=== PATIENT | female | born 1955 | race Caucasian/White ===

== ENCOUNTER 2022-05-26 08:49 | Outpatient (CLI) | payer MEDICARE, SELFPAY ==
[2022-05-26 14:50] LABS: Chloride* 105 mmol/L (96-114); Potassium* 4.7 mmol/L (3.6-5.1); Sodium* 137 mmol/L (135-149)
[2022-05-26 14:52] LABS: Cholesterol* 260 mg/dL (90-199)
[2022-05-26 14:53] LABS: Blood Urea Nitrogen* 16 mg/dL (7-30); Calcium* 9.7 mg/dL (8.4-10.6); Carbon Dioxide* 28 mmol/L (20-32); Creatinine* 0.7 mg/dL (0.5-1.5); Estimated Glomerular Filt Rate 96 ml/min; Glucose* 85 mg/dL (60-115); Triglycerides* 79 mg/dL (40-149)
[2022-05-26 14:54] LABS: HDL Cholesterol* 85 mg/dL (>=50); LDL Cholesterol Calculated 159 mg/dL (<100)
== END 2022-05-26 08:50 | disposition home or self-care (01) ==
PROVIDERS: PCP Family Medicine; Visit Provider Emergency Medicine
DX: E78.5 Hyperlipidemia, unspecified (principal); Z13.1 Encounter for screening for diabetes mellitus
CPT/HCPCS: 80048; 80061

== ENCOUNTER 2022-08-11 15:11 | Outpatient (CLI) | payer MEDICARE, SELFPAY ==
--- NOTE | 2022-08-11 15:30 | CRLHL7_ITS ---
For Patients: As a result of the Century Cures Act, medical imaging exams and procedure reports are released immediately into your electronic medical record. You may view this report before your referring provider. If you have questions, please contact your health care provider. DXA BONE MINERAL DENSITY STUDY Current height (in): 63.5. Weight (lb): 166.0. Menopause age: 58. Ethnicity: White. 1. Have you had a previous hip or vertebral fracture? No. 2. Have you had any fractures during your adult life which did not result from significant trauma (e.g., auto accident)? No. 3. Did either of your parents have a hip fracture? No. 4. Do you smoke? No. 5. Have you ever taken Glucocorticoids? No. 6. Do you have rheumatoid arthritis? No. 7. Do you have secondary osteoporosis? No. 8. Do you drink 3 or more alcoholic drinks per day? No. 9. Are you being treated for osteoporosis? Yes. 10. Have you ever taken any of the following medications: Actonel, Evista, Fosamax, Miacalcin, Reclast, Boniva, Forteo, HRT (i.e. estrogen/hormone therapy), Protelos, Prolia, Vitamin D, Calcium, other ??? please specify. ANSWER: No. 11. Do you have any of the following medical conditions: Anorexia or bulimia, asthma or emphysema, end stage renal disease, hyperparathyroidism, any seizure disorders, cancer, inflammatory bowel diseases, hysterectomy, other ??? please specify. ANSWER: No. 12. What was your maximum height (inches)? 64. 13. Do you perform weight bearing exercise regularly? Yes. 14. Do you regularly consume dairy products? Yes. 15. Do you drink caffeinated beverages? Yes. 16. At what age did your period start? 15. 17. Are you premenopausal? No. 18. How many full term pregnancies have you had? 3. 19. Have you ever missed your period for more than 6 months in a row (not including or menopause)? No. TECHNIQUE: Bone mineral density study was performed using the [employer]. FINDINGS: The results of the study expressed as bone mineral density (BMD) are as follows: Lumbar spine L1 to L3: BMD: 0.960 g/cm2. T-score: -0.5. Z-score: 1.2. Neck Left: BMD: 0.808 g/cm2. T-score: -0.4. Z-score: 1.2. Right: BMD: 0.870 g/cm2. T-score: 0.2. Z-score: 1.7. Total Left: BMD: 0.992 g/cm2. T-score: 0.4. Z-score: 1.7. Right: BMD: 1.003 g/cm2. T-score: 0.5. Z-score: 1.8. IMPRESSION: Normal bone density. *Comparison exams done prior to 11/2019 were performed on different unit, [employer]. COMPARISON: Compared with scan of 03/25/2019, the bone mineral density has decreased by 6.9 percent at the spine and increased by 4.2 percent at the hip. MARCIO CHRISTIAN MD Diagnostic/Nuclear Medicine Radiologist [email or web address] JASON/[email or web address] be/Dictated by: Marcio Christian MD @ 08/11/2022 9:45:00 PM (Electronically Signed)
== END 2022-08-11 15:12 | disposition home or self-care (01) ==
PROVIDERS: PCP Family Medicine; Visit Provider Emergency Medicine
DX: Z13.820 Encounter for screening for osteoporosis (principal); Z78.0 Asymptomatic menopausal state
CPT/HCPCS: 77080

== ENCOUNTER 2022-12-28 08:11 | Day surgery (SDC) | payer MEDICARE, SELFPAY ==
[2022-12-28] VITALS (7 sets, daily range): BP systolic 86–122; BP diastolic 56–85; PULSE 53–84; RESP 14–16; TEMP 36.7–36.8; O2SAT 93–97; BMI 29.2
[2022-12-28] MEDS: LACTATED RINGERS 1000 ML 1,000 ML 100 ML IV ×2 (09:15→10:40)
[2022-12-28] MEDS: SODIUM CHLORIDE 0.9 % (FLUSH) 10 ML SYRINGE IVF (09:15)
[2022-12-28] MEDS: MIDAZOLAM HCL 1 MG/ML inj IVP (09:45)
[2022-12-28] MEDS: fentaNYL 100 MCG/2 ML inj IVP (09:45)
--- NOTE | 2022-12-28 09:48 | SUR.PREOP ---
TIME?OUT:?0943 PT/RN/MDA?VERIFICATION?OF?SURGICAL?SITE,?PROCEDURE,?AND?CONSENT OBTAINED?PRIOR?TO?INVASIVE?PROCEDURE. All in agreement.
[2022-12-28] MEDS: CEFAZOLIN 2 GM in 0.9 % SODIUM CHLORIDE Mini-bag 100 ML IVPB (10:25)
--- NOTE | 2022-12-28 10:37 | W.PM.NB ---
Nerve Block Nerve Block Time Seen by Provider: 09:48 Date Seen: 12/28/22 Type of block requested by surgeon for post-operative analgesia: axillary Side: left Time out performed: Yes Verification of patient name: Yes Verification of date of : Yes Site marking: site marked Name of person performing procedure: Jamar Continuous monitoring Was continuous monitoring of O2 sat, B/P, quality assurance monitor chassis, recorded every 15 minutes?: Yes Procedure Checklist: sterile prep, needles and gloves Ultrasound guided. Images saved: Yes Medications given in 5ml increments after negative aspiration: Ropivicaine %: 0.5 mL: 30 Needle gauge: 22 Patient tolerated procedure well: Yes Additional comments: Needle noted adjacent to nerve Block Charges Block Charge (with Pro Fee): Brachial Plexus Use of Ultrasound Machine for Block: Yes- US Guidance/pain block
--- NOTE | 2022-12-28 10:38 | W.ANESCHARGE ---
Anesthesia Charges Start Date/Time Anesthesia Start Date: 12/28/22 Anesthesia Start Time: 10:06 Stop Date/Time Anesthesia Stop Date: 12/28/22 Anesthesia Stop Time: 12:05
--- NOTE | 2022-12-28 11:26 | P.ORPRC_ITS ---
Procedure Note Date of procedure: 12/28/22 Procedure: PREOPERATIVE DIAGNOSIS: 1. Left thumb CMC osteoarthritis, primary, severe 2. Left ring finger dorsal mucous cyst with associated D IP joint osteophytosis POSTOPERATIVE DIAGNOSIS: 1. Left thumb CMC osteoarthritis, primary, severe 2. Left ring finger dorsal mucous cyst with associated DIP joint osteophytosis PROCEDURE: 1. Left thumb CMC arthroplasty with transfer of FCR tendon carpometacarpal area without free graft / tendon interposition (LRTI) 2. Left ring finger open mucous cyst excision 3. Left dorsal ring finger DIP joint osteophyte open excision SURGEON: Yash Husain M.D. MASSAGE OPERATOR: Roderick CARRERA. Of note, an assistant professor of business was critical for this case to aid in patient positioning, arm manipulation, instrument exchange, and closure. ANESTHESIA: Regional block EBL: 5 mL TOURNIQUET: 60 minutes at 225 torr torr-arm tourniquet IMPLANTS: Arthrex 4.75 mm BioComposite interference screw COMPLICATIONS: None evident INDICATIONS: The patient is a pleasant 67-year-old female. They have experienced significant pain about the thumb CMC joint on the left upper extremity. Nonoperative management including cortisone injection, activity modification, bracing, rest, oral NSAIDs, etc has not provided long-term relief. Given the failure of nonoperative management, surgery was recommended. FINDINGS: Severe osteoarthritis of the 1st CMC joint seen by osteophyte formation, chondral loss, and joint space narrowing, consistent with CMC osteoarthritis DESCRIPTION OF PROCEDURE: After a thorough discussion of risks, benefits, and alternatives, the patient was brought to the operating room and placed upon the operating table. Induction of anesthesia was undertaken as previously noted. 1 g IV Ancef was administered within 1 hr incision preoperatively. Appropriate time-out was performed identifying proper patient, site, and procedure. The left upper extremity was prepped and draped in the appropriate sterile fashion using ChloraPrep. The limb was exsanguinated and tourniquet inflated. A curvilinear incision was made along the ulnar border of the 1st metacarpal with the curved portion extending volar just proximal to the CMC joint. Sharp incision through skin and blunt dissection to subcutaneous tissue allowed identification and protection of the crossing neurovascular structures including the SBRN. The dorsal capsule off the metacarpal base was sharply divided and subperiosteally elevated. The crossing branch of radial artery was visualized in the proximal extent of the wound, its small branches to the capsule were coagulated, but the rest the artery was protected. The trapezium was freed from the surrounding capsular tissues circumferentially with a combination of 15 blade and a [place] blade. After freeing the trapezium from the superficial tissues, the bone was quartered with a microsagittal saw a majority of the way through the bone. Caution was taken not to penetrate completely so as not to injure the FCR tendon in the deep portion of the wound. The osteotomy was completed with an osteotome. The quartered fragments were then removed with a combination of a rongeur, and sharp dissection cautiously with the [place] blade. We then turned our attention to the FCR tendon harvest for transfer. The tendon was easily palpable approximately 10 cm proximal from the wrist crease. A transverse incision was made overlying this musculotendinous junction. Blunt dissection through subcutaneous tissue allowed identification of the FCR tendon and sheath. The FCR was probed in the deep portion of the trapezium wound, and after talking on this, confirmed the more proximal location of the FCR. The FCR sheath was entered, the tendon sharply divided from the deeper muscle, and a Metzenbaum scissors was utilized to release any adhesions within the sheath distally toward the wrist. We also released any adhesions within the FCR tunnel through the carpus with a [place] elevator. Then a combination of a probe and a hemostat allowed us to bluntly free and exposed the FCR tendon out the trapezial void. 2-0 FiberWire was utilized to capture the deep capsule for eventual anchovy securing of the transferred FCR tendon and a 2nd 2-0 FiberWire was passed near the FCR tendon insertion for eventual reapproximation of the looped tendon onto itself. In order to pass it through the metacarpal base, a guide pin was passed approximately 15 mm distal from the metacarpal base in plane with the thumbnail directed towards the metacarpal base coming out through the articular surface / beak junction. After confirming proper location, this was over reamed with a 5 mm Reamer. A tendon Passer was then utilized to help transfer the freed FCR tendon through this tunnel. Once the thumb was held in proper position of slight traction and slight extension with neutral rotation and abduction, the tendon was looped back on itself and tied with the previously passed 2-0 FiberWire secured to the deeper FCR near the 2nd metacarpal base distal insertion site. Then, 3-0 Vicryl was utilized to help stabilize the tendon with the capsule to counteract the natural wrapping that the screw otherwise creates. Next, the interference screw was placed while controlling the thumb from distal toward the proximal. We then reapproximated the dorsal capsule through the now passed tendon with 3-0 Vicryl. This occurred while positioning the thumb metacarpal in slight abduction and extension with proper height maintained based on direct visualization to the 2nd metacarpal base. Finally, 2-0 FiberWire was utilized to capture the deep capsule for eventual anchovy securing of the transferred FCR tendon. We then created an anchovy with remaining tendon with 2 separate [place] needles that allowed us to pass the tails of the deeper capsular 2-0 FiberWire through this. Excellent securing of the tendon was achieved. We then turned our attention to the left ring finger mucous cyst open excision and osteophyte excision. Sharp incision transversely across the D IP joint dorsally was performed with a small L curve at the ulnar border. This flap the tissue was mobilized. The extensor tendon was maintained throughout this procedure and protected. The dorsal mucous cyst was encountered and excised with a combination of curette and 15 blade scalpel. The fluid was decompressed. The dorsal osteophyte was excised with a combination rongeur and rasp again protecting the extensor tendon. Thorough irrigation normal saline was performed of all wounds. Closure was then performed with 3-0 Vicryl for subcutaneous, and 4-0 Monocryl for subcuticular layers of the thumb, respectively. 4-0 nylon was utilized for closure of the left ring finger skin PLAN: 1. Elevate operative extremity at or above heart level. 2. Ice, acetominophen and/or ibuprofen, and Percocet for pain as needed. 3. Finger/wrist range of motion as tolerated. 4. Keep the splint clean, dry, and intact until follow-up. 5. Follow up with PA visit in 2 weeks removal of splint and application of thumb spica cast. Then follow-up at the 4 week tarah for removal of cast and OT visit for Orthoplast splint fabrication which should be scheduled immediately after the orthopedic clinic visit that day on the 4 week tarah
--- NOTE | 2022-12-28 12:05 | W.ANESCHARGE ---
Anesthesia Charges Start Date/Time Anesthesia Start Date: 12/28/22 Anesthesia Start Time: 10:06 Stop Date/Time Anesthesia Stop Date: 12/28/22 Anesthesia Stop Time: 12:05
== END 2022-12-28 13:25 | disposition home or self-care (01) ==
PROVIDERS: PCP Family Medicine; Visit Provider Orthopaedic Surgery Sports Medicine
PROC: (CPT 25447; principal; 2022-12-28 09:45)
PROC: (CPT 25447; 2022-12-28 09:45)
DX: M18.12 Unilateral primary osteoarthritis of first carpometacarpal joint, left hand (principal); G89.18 Other acute postprocedural pain; M25.742 Osteophyte, left hand; M67.442 Ganglion, left hand
CPT/HCPCS: 25447; 26160; 26210; 01810; 64415; 76942; A4580; C1713; J0690; J1100; J2250; J2405; J2704; J2795; J3010; J7120

== ENCOUNTER 2023-01-04 09:45 | Outpatient (RCR) | payer MEDICARE, SELFPAY ==
--- NOTE | 2022-11-30 13:21 | OT.OPOE ---
OT Outpatient Ortho Eval OT Outpatient Ortho Eval* Start: 11/30/22 07:13 Freq: Status: Active Protocol: Document 11/30/22 13:03 AMB (Rec: 11/30/22 13:21 AMB [id number]) E-signed By Brenda Sheppard, OTR/L, CLT, PAYROLL ADMINISTRATOR OT OP Ortho Eval Details Complexity Complexity Low Insurance Information Insurance Information Medicare B Outpatient History/Precautions Current Condition/Medical Diagnosis Referring Provider Dr Husain Treatment Diagnosis RUE Index DIP arthrodesis Date of Onset 11/02/22 Precautions Range of Motion Other Precautions No ROM of the RUE index DIP. Medical Conditions Metal Implants Other Conditions LLE TKA 2015, BUE CTR, Bunion surgery, meniscus repairx2, hypercholesterolemia. Pt will be undergoing LUE CMC arthroplasty in December. Medical/Functional History Medical History Reviewed Yes Prior Level of Function/Mobility Full, pain-free use of RUE. Social History Employment Status Retired Hobbies Paper [employer] Ortho Subjective Subjective Subjective Pt states that she suddenly developed swelling and discoloration of her RUE index finger tip and was seen in the ER, referred to orthopedics. Discovered that she had a bone spur that was blocking circulation and subsequently underwent debridement and fusion of the DIP of the RUE index finger on 11/02/22. Pt feels she is doing ok, no significant pain unless she bumps it. Pt has been wearing her aluma-foam splint. Pt states the doctor gave her a STAX splint but her finger is too swollen and she cannot get it on. Range of Motion and Strength Hand/Finger/Thumb Range of Motion and Strength Hand/Finger/Thumb Range of Motion and 11/30/22 AROM of the RUE is WNL Strength throughout with the exception of the index finger. DIP is fused, PIP is 25 deg of hyperextension to 65 deg of flex, MP is 0-75. OT Objective Data Skin/Wounds/Edema Comments 11/30/22 Surgical site is well healed, no s/s of infection. Pt does have significant swelling throughout the index finger. Circumferential measurements were taken: distal phalanx=5.3cm on the RUE vs 4.5 on the LUE. DIP joint is 6.2cm on the RUE vs 5 .0 on the LUE. PIP is 6.5cm on the RUE vs 6.0 on the LUE. Proximal phalanx is 6.7cm on the RUE vs 6.0cm on the LUE. OT Problems Problems Problems Decreased Strength,Decreased Range of Motion,Decreased Dexterity,Lifting,Gripping, Pinching Problems Comments Pt is RHD and is having difficulty with all activities that require pinching, gripping, FMC, etc. Other Problems Writing,Opening Containers, Dressing,Computer,Fasteners Patient Potential Good Assessment Assessment Assessment Pt presents to OT with significant swelling and limitations in AROM of the RUE index finger which limits her ability to grasp, pinch, write, open containers, lift, etc. 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 She will also be having LUE thumb CMC arthroplasty in December, hoping to have improved use of LUE by then. Pt will benefit from skilled OT intervention to address impairments and restore full, pain-free use of her LUE. Occupational Therapy Treatment Plan - OP Potential Rehabilitation Potential Good Goals Goals 1. Pt will be independent and compliant with HEP in order to restore full ROM of the RUE index IP and MP joints and general strength of the RUE. 4 weeks 2. Pt will demonstrate full AROM of the RUE index finger PIP and MP joints to improve ability to grasp and hold items as well as to improve hand writing and typing. 6 weeks 3. Pt will demonstrate transportation maintenance specialist strength comparable to average for age and gender in order to improve FMC and ability to pinch and cloth picker small items. 8 weeks. Treatment Plan Treatment Plan Evaluation,Edema Control,Joint Mobilization,Manual Therapy, Splinting,Wound Care/Scar Management,Therapeutic Exercise,Therapeutic Activities,Self Care/Home Management,Education Expected Frequency 1-2x Week Expected Duration 6-8 Weeks Home Program Home Program Home Program Initiated Home Program Specifics 11/30/22 Compression wrap, joint blocking AROM of the RUE PIP and MP, retrograde massage for edema reduction. Certification Certification I Certify That: Therapy Services Provided, Therapy Plan Established, Therapy Plan Reviewed Recertification Information Recertification Information Initial Certification Date 11/30/22 Recertification Due Date 02/28/23 Reasons to Continue Skilled Therapy Initiated OT to address swelling, weakness and impaired ROM of the RUE following index DIP fusion. Rehabilitation Potential Good Continued Plan of Care and Interventions See above Provider Signature Shows Agreement With POC & Medical Necessity Physician Comment/Change Comment or Changes Physician NPI Number #
== END 2023-01-05 08:05 | disposition home or self-care (01) ==
PROVIDERS: PCP Family Medicine; Visit Provider Orthopaedic Surgery Sports Medicine
DX: M18.12 Unilateral primary osteoarthritis of first carpometacarpal joint, left hand (principal); Z51.89 Encounter for other specified aftercare
CPT/HCPCS: 97140; 97165

== ENCOUNTER 2023-03-31 09:15 | Outpatient (RCR) | payer MEDICARE, SELFPAY ==
--- NOTE | 2023-01-31 13:05 | OT.OPOE ---
OT Outpatient Ortho Eval OT Outpatient Ortho Eval* Start: 01/31/23 09:58 Freq: Status: Active Protocol: Document 01/31/23 12:29 AMB (Rec: 01/31/23 13:01 AMB [id number]) E-signed By Brenda Sheppard, OTR/L, CLT, AUTOMATIC I THREADING MACHINE FEEDER OT OP Ortho Eval Details Complexity Complexity Low Insurance Information Insurance Information Medicare B Outpatient History/Precautions Current Condition/Medical Diagnosis Referring Provider Dr Husain Treatment Diagnosis LUE CMC Arthroplasty Date of Onset 12/28/22 Other Precautions Allergy to surgical glue Medical Conditions Metal Implants,Arthritis Other Conditions PMH: (copied from ortho chart ) Medical History (Updated 01/27 @ 12:46 by Ara Lucas) Hypercholesteremia E78.00 - Pure hypercholesterolemia, unspecified (ICD-10) Preventative health care Z00.00 - Encounter for general adult medical examination without abnormal findings (ICD -10) Screening for cervical cancer Z12.4 - Encounter for screening for malignant neoplasm of cervix (ICD-10) Screening for osteoporosis Z13.820 - Encounter for screening for osteoporosis ( ICD-10) Screening for diabetes mellitus Z13.1 - Encounter for screening for diabetes mellitus (ICD-10) Encounter for pre-operative examination Z01.818 - Encounter for other preprocedural examination (ICD -10) Encounter for annual physical exam Z00.00 - Encounter for general adult medical examination without abnormal findings (ICD -10) Surgical History (Updated @ 10:37 by Abdirizak Eldridge) History of hand surgery (12/28) Z98.890 - Other specified postprocedural states (ICD-10) History of arthroplasty of finger of left hand (12/28/22) Z96.692 - Finger-joint replacement of left hand (ICD- 10) H/O arthrodesis (11/02/22) Z98.1 - Arthrodesis status ( ICD-10) History of carpal tunnel surgery of right wrist () Z98.890 - Other specified postprocedural states (ICD-10) S/P left knee arthroscopy (07/04) Z98.890 - Other specified postprocedural states (ICD-10) S/P right knee arthroscopy () Z98.890 - Other specified postprocedural states (ICD-10) History of carpal tunnel surgery of left wrist () Z98.890 - Other specified postprocedural states (ICD-10) Status post total left knee replacement (08/10/15) Z96.652 - Presence of left artificial knee joint (ICD-10) History of colonoscopy Z98.890 - Other specified postprocedural states (ICD-10) History of section ( 10/31/08) Z98.891 - History of uterine scar from previous surgery ( ICD-10) Medical/Functional History Medical History Reviewed Yes Social History Employment Status Retired Hobbies Paper crafting and sewing. Ortho Subjective Subjective Subjective Pt feels she is doing well since her CMC arthroplasty. Pt did have a set back due to an allergy from the surgical glues, sates she had to have her 'cast' on a weel longer, developed blistering and itching, much better now but still has dressing on (just applied by ortho prior to OT visit today). Pt looking forward to removable orthosis and being able to start moving her hand. Pt reports minimal pain, rates pain at 1/10 in her left thumb/wrist. Pt states she had expected the pain to be worse, glad it isn' t. Range of Motion and Strength Elbow/Forearm Range of Motion and Strength Elbow/Forearm Range of Motion and AROM and strength of BUE Strength elbows is WNL throughout Wrist Range of Motion and Strength Wrist Range of Motion and Strength AROM of the RUE wrist is WNL throughout. AROM of the LUE wrist flexion is limited to 45 , ext is 50, UD is 30, RD is 5 . Hand/Finger/Thumb Range of Motion and Strength Hand/Finger/Thumb Range of Motion and AROM of the RUE hand/fingers/ Strength thumb is WNL throughout with the exception of the index finger which was fused at the DIP joint several months ago secondary to arthritis. AROM of the LUE hand fingers / thumb is limited as follows: opposition is to tip of IF, fist is -.5cm from DPC throughout, thumb radial abd is 40, palmar abd is 25, IP is 10deg, MP ext is 5 deg. Hand Pinch/Title Insurance Examiner Strength Comments Comments Too early for strength testing . OT Problems Problems Problems Decreased Strength,Decreased Range of Motion,Pain,Lifting, Gripping,Pinching Other Problems Opening Containers,Computer, Fasteners Patient Potential Good Assessment Assessment Assessment Pt is a very pleasant 67yo female reporting to OT nearly 5 weeks s/p LUE CMC arthroplasty with expected limitations in ROM and strength. Pt is in need of custom splinting for protected healing as well as HEP for AROM, eventually strengthening . Pt is currently limited in all ADLs and IADSLs that require use of her LUE. Pt will benefit from skilled OT intervention for custom splinting and to restore full, pain-free use of LUE in order to return to PLOF / use of LUE. Occupational Therapy Treatment Plan - OP Potential Rehabilitation Potential Good Set Goals Goals Set with Patient Yes Goals Goals 1. Pt will be independent and compliant with HEP in order to resume full, pain-free use of the involved UE. 3 weeks 2. Pt will demonstrate full, pain-free AROM of the involved UE in order to improve ability to grasp and hold. 6 weeks 3. Pt will demonstrate pain- free air cargo specialist and pinch strength comparable to the uninvolved side in order to improve functional grasp, hold, reach, and lifting ability needed to complete self-care, leisure tasks, and work activities. 8 weeks. Target Date 05/03/23 Treatment Plan Treatment Plan Evaluation,Edema Control,Joint Mobilization,Manual Therapy, Splinting,Ultrasound,Wound Care/Scar Management, Therapeutic Exercise, Therapeutic Activities,Self Care/Home Management,Education Expected Frequency 1-2x Week Expected Duration 8-10 Weeks Home Program Home Program Home Program Initiated Home Program Specifics 01/31/23 Initiated HEP with focus on AROM and non resisted mm pumps for the LUE in order to promote full AROM, reduce swelling and decrased pain and stiffness in LUE hand, fingers, thumb, and wrist. Following demo, pt is able to complete exs with minimal cues . Pt was provided with written instructions for use at home as well. Certification Certification I Certify That: Therapy Services Provided, Therapy Plan Established, Therapy Plan Reviewed Recertification Information Recertification Information Initial Certification Date 01/31/23 Recertification Due Date 05/01/23 Reasons to Continue Skilled Therapy Initiated OT to address LUE pain, weakness, and limited AROM following CMC arthroplasty. Rehabilitation Potential Good Continued Plan of Care and Interventions Please see above Provider Signature Shows Agreement With POC & Medical Necessity Physician Comment/Change Comment or Changes Physician NPI Number #
== END 2023-03-31 13:07 | disposition home or self-care (01) ==
PROVIDERS: PCP Family Medicine; Visit Provider Orthopaedic Surgery Sports Medicine
DX: M18.12 Unilateral primary osteoarthritis of first carpometacarpal joint, left hand (principal); Z98.890 Other specified postprocedural states; Z51.89 Encounter for other specified aftercare
CPT/HCPCS: 97035; 97110; 97140; 97165; L3806; X5282

== ENCOUNTER 2023-09-22 08:09 | Outpatient (CLI) | payer MEDICARE, SELFPAY ==
--- OUTSIDE RECORDS SUMMARY | 2023-10-11 11:32 | XMS_ITS | Referral Summary ---
Author Name Unknown Organization [facility] Address [address] [place] [id number] Care Team Providers Care Rock Crushing Machine Operator Name Role Phone Conn Aleja Patino Primary Care Provider [phone] Allergies No known active allergies Medications Medication Sig Dispensed Refills Start Date End Date Status order for DMEIndications:Metat arsalgia, right foot Equipment being ordered: short 8 06/13 boot 1 Device 03/01/2019 Active Hospital, Clinic, or Other Facility Administered Medication Ordered Dose Route Frequency Start Date End Date Status triamcinolone (KENALOG-40) injection 40 mgIndications:Plantar fasciitis 40 mg IM ONCE 03/01/2019 Active Active Problems No known active problems Social History Tobacco Use Types Packs/Day Years Used Date Smoking Tobacco: Never Smokeless Tobacco: Never Tobacco Cessation:Counseling Given: Yes Adolescent Education Answer Date Record ed Getting School Help Needed Not on file 03/26 Sex and Gender Information Value Date Recorded Sex Assigned at Not on file Gender Identity Not on file Sexual Orientation Not on file Last Filed Vital Signs Vital Sign Reading Time Taken Comments Blood Pressure 127/69 09/30/2022 2:17 PM CDT Pulse 69 09/30/2022 2:17 PM CDT Temperature 36.6 ??C (97.8 ??F) 09/30/2022 2:17 PM CD T Respiratory Rate 17 09/30/2022 2:17 PM CDT Oxygen Saturation 97% 09/30/2022 2:17 PM CDT Inhaled Oxygen Concentration - - Weight 77.5 kg (170 lb 13.7 oz) 09/30/2022 2:17 PM CDT Height 160 cm (5' 3) 03/26/2019 6:57 AM CDT Body Mass Index 30.27 03/26/2019 6:57 AM CDT Plan of Treatment Not on file Procedures Procedure Name Priority Date/Time Associated Diagnosis Comments BASIC METABOLIC PANEL STAT 09/30/2022 5:47 PM CDT from Last 3 Months or Most Recently Relevant to Health Maintenance Results * Basic metabolic panel (09/30/2022 5:47 PM CDT) Sodium 137 136 - 145 mmol/L 09/30/2022 6:22 PM CDT LABORATORY Potassium 4.1 3.4 - 5.3 mmol/L 09/30/2022 6:22 PM CDT LABORATORY Chloride 100 98 - 107 mmol/L 09/30/2022 6:22 PM CDT LABORATORY Carbon Dioxide (CO2) 26 22 - 29 mmol/L 09/30/2022 6:22 PM CDT LABORATORY Anion Gap 11 7 - 15 mmol/L 09/30/2022 6:22 PM CDT LABORATORY Urea Nitrogen 15.4 8.0 - 23.0 mg/dL 09/30/2022 6:22 PM CDT LABORATORY Creatinine 0.69 0.51 - 0.95 mg/dL 09/30/2022 6:22 PM CDT LABORATORY Calcium 9.8 8.8 - 10.2 mg/dL 09/30/2022 6:22 PM CDT LABORATORY Glucose 98 70 - 99 mg/dL 09/30/2022 6:22 PM CDT LABORATORY GFR Estimate >90 >60 mL/min/1.7 3m2 09/30/2022 6:22 PM CDT LABORATORY Comment:eGFR calculated usin 2020 CKD-EPI equation. Blood BLOOD SPECIMEN / Unknown Venipuncture / Unknown 09/30/2022 5:47 PM CDT 09/30/2022 5:59 PM CDT Xavi Mariee MD LAB - BLOOD ORD ERABLES LABORATORY [facility] [address] Lab (1st floor, no room number) [place] [address], [facility] [phone] from Last 3 Months or Most Recently Relevant to Health Maintenance Care Teams Rock Crushing Machine Operator Relationship Specialty Start Date End Date Aleja Conn [facility] [address] [place], [place] [id number] PCP - General Nurse Practitioner 04/18/16
--- OUTSIDE RECORDS SUMMARY | 2023-10-11 11:32 | XMS_ITS | Encounter Summary ---
Author Name Unknown Organization [facility] Address [address] [address] Care Team Providers Care School Cleaner Name Role Phone Nathen Rose MD Primary Care Provider [phone] Encounter Details Date Type Department Care Team (Latest Contact Info) Description 07/01/1996 Orders Only Gulshan Foote MD [address] [facility] [place] [address] Social History Tobacco Use Types Packs/Day Years Used Date Smoking Tobacco: Never Assessed Sex and Gender Information Value Date Recorded Sex Assigned at Not on file Gender Identity Not on file Sexual Orientation Not on file documented as of this encounter Plan of Treatment Not on file documented as of this encounter Visit Diagnoses Not on filedocumented in this encounter Care Teams School Cleaner Relationship Specialty Start Date End Date Nathen Rose MD [address] [place] [address] PCP - General Family Practice 09/20/23 documented as of this encounter
--- OUTSIDE RECORDS SUMMARY | 2023-10-11 11:32 | XMS_ITS | Encounter Summary ---
Author Name Unknown Organization [facility] Address [address], [place] [address] Care Team Providers Care Car Rider Name Role Phone Nathen Rose MD Primary Care Provider Encounter Details Date Type Department Care Team (Latest Contact Info) Description 06/06/1997 [place] [address] [place] [address] Social History Tobacco Use Types Packs/Day Years Used Date Smoking Tobacco: Never Assessed Sex and Gender Information Value Date Recorded Sex Assigned at Not on file Gender Identity Not on file Sexual Orientation Not on file documented as of this encounter Plan of Treatment Not on file documented as of this encounter Visit Diagnoses Not on filedocumented in this encounter Care Teams Car Rider Relationship Specialty Start Date End Date Nathen Rose MD [address] [place] [address] PCP - General Family Practice 09/20/23 documented as of this encounter
--- OUTSIDE RECORDS SUMMARY | 2023-10-11 11:32 | XMS_ITS | Encounter Summary ---
Author Name Unknown Organization [facility] Address [address] [address] Care Team Providers Care Newsroom Intern Name Role Phone Evelyn Cruz MD Primary Care Provider [phone] Reason for Visit * Reason Comments Eye Exam Encounter Details Date Type Department Care Team (Late st Contact Info) Description 09/13/2023 10:00 AM CDT Office Visit [facility] [address] [place], [place] [id number] Rachel Castellano, OD [address] [place], [place] [id number] Examination of eyes and vision (Primary Dx); Presbyopia; Regular astigmatism of both eyes; Endothelial corneal dystrophy of both eyes; History of strabismus surgery; Allergic conjunctivitis of both eyes; Age-related nuclear cataract of both eyes Social History Tobacco Use Types Packs/Day Years Used Date Smoking Tobacco: Never Smokeless Tobacco: Never PHQ-2 Answer Date Recorded PHQ-2 Score 0 04/28/2021 Sex and Gender Information Value Date Recorded Sex Assigned at Not on file Gender Identity Not on file Sexual Orientation Not on file documented as of this encounter Patient Instructions * Patient Instructions* Rachel Castellano, OD - 09/13/2023 10:00 AM CDT If you have questions, you can send me a message through [employer] or call [phone]. Call [phone] or [phone] (after hours) with any new or worsening eye symptoms. Overall, your eyes are healthy at this time. An updated glasses prescription was finalized today. Dry Eye Treatments [x] Artificial tears/lubricant drops (Refresh, Systane, Retaine, Blink, Optive, TheraTears) [x] Once daily allergy drop like lastacaft or pataday [x] Warm compresses: 1. Warm a gel pack, Thermalon Mask, Angel Mask, or a clean sock filled with uncooked rice (microwave in 30 second increments and mix). Gel packs are available at the [facility] or a pharmacy; Angel Masks are available at the [facility]. 2. Place over your eyes for 10-15 minutes. 3. Follow up with a gentle eyelid massage. [x] Eyelid cleansing lid scrubs (We Love Eyes, TheraTears SteriLid, OcuSoft Plus, OcuSoft HypoChlor) Dry Eye Your natural tears protect your eyes and help you see clearly. When you blink, the tear film spreads over your eye, making the surface smooth and optically clear. Dry eyes occur when you don???t produce enough normal tears to keep your eyes moist and comfortable. This condition may be part of the normal aging process, since tear production may decrease as you age. It can also be associated with arthritis or Sjogren???s syndrome, or may be caused by certain medications. Common symptoms of dry eyes include stinging, burning, scratchiness, stringy mucus, excess irritation from smoke, difficulty wearing contact lenses. Surprisingly, increased tearing may also be a symptom of dry eyes. When your eyes are dry, they can become irritated. The lacrimal gland then producesexcess tears in response to the irritation. However, because these tears do not have the right balance of layers found in normal tear film, they run off the eyes without properly lubricating them. Artificial tears (lubricant eye drops) are an effective treatment for symptoms from dry and irritated eyes that burn, feel gritty, itch, or water. It is important to use your artificial tears frequently, before symptoms occur, especially before extended times of reading, computer work, driving, or f ollowing outdoor activities. The most common cause of continued symptoms from dry and irritated eyes is failure to use these lubricants enough to bring about and maintain adequate relief. Because these drops cannot be used too often, it is safe to increase their frequency as your symptoms change. The usual dose is 3-5 times a day. Good brands to look for include Refresh, Systane, Retaine, Blink, BioTrue and TheraTears. If you are sensitive to chemicals or preservatives, look for the preservative-free versions of these brands. Avoid eye drops that get the red out as these can make your eyes more dry and irritated with long-term use. These artificial tears can be purchased [id number] at our pharmacy and most [employer] stores. Use them frequently until your symptoms are controlled, or as directed by your doctor. For long-termtherapy, experiment by slowly reducing the number of installations each day to determine the minimum treatment needed to keep you symptom-free. Other treatment options for more significant dry eye include lubricating eye ointments (like Systane Night Time, Soothe Night Time, Refresh PM, or Genteal Gel) before sleeping, warm compresses, prescription eyedrops, eyelid cleansing products, tear duct plugs, oral omega-3 (fish oil) supplements, and environmental modifications. If you do not find relief from your dry eye symptoms with frequent use of artificial tears, you can schedule a visit to discuss which of these other treatment options would be right for you. Cataracts - mild, both eyes A cataract is a cloudy area in the lens of the eye. Usually, the lens is clear; as it becomes cloudy, your vision may become blurry. Cataracts usually develop gradually without pain, redness, or tearing. Cataracts should be removed with surgery when your vision interferes with your daily activities. Corneal Guttata - very early In the initial stages there are often no symptoms with corneal guttata. With time however they cause a loss of transparency in the cornea which can result in glare and scatter. If the corneal guttatabecome progressively worse and damage the endothelial cells underneath, then this can cause blurring of the vision and haloes around lights. This is typically worse in the mornings to begin with, please call us if you notice increased blurred vision or changes in vision. Early treatment includes saline solution eye drops to decrease swelling of the front surface of the eye. If this conditions progresses surgery may be necessary, this is rare. Refractive Errors Refractive errors occur when light does not focus properly on the retina because of the shape of the eye. The resulting image is blurred. Common refractive errors are myopia (nearsightedness), hyperopia (farsightedness), astigmatism (distorted vision), and presbyopia (aging eyes). Myopia A myopic eye is longer than a normal eye or has a cornea that is too steep, causing light rays to focus in front of the retina instead of on it. With myopia, close objects appear clear, but distant ones appear blurred. Hyperopia Hyperopia occurs when light rays focus behind the retina (because the eye is either too short or has too little focusing power) and causes both far and close objects to appear blurry. The symptoms offarsightedness are more severe with closer objects. Mild amounts of farsightedness are normal and glasses are not typically not required. Children can compensate for this on their own using their natural focusing mechanism (accommodation). Larger amounts of farsightedness are corrected with glasses. Astigmatism The cornea of an astigmatic eye is curved unevenly. Images focus in front of and beyond the retina,causing both close and distant objects to appear blurry. Presbyopia Presbyopia refers to the hardening of the lens that occurs with age. After the age of 40, the lens becomes more rigid and cannot change shape as easily to accommodate near objects. This makes readingand other tasks performed at close range difficult. Presbyopia can occur in combination with any ofthe other three refractive errors. Refractive errors are usually corrected with eyeglasses or contact lenses. If interested, there aresome surgical options such as LASIK or PRK to correct vision, please discuss with your doctor to find out if you would be a good candidate for these surgeries. documented in this encounter Progress Notes * Rachel Castellano, OD - 09/13/2023 10:00 AM CDT I reviewed the patient's past medical history, medications, family history, and social history. General: Generally healthy appearing. Alert and oriented x 3. Subjective: See tech note for today, agree. Assessment: ICD-10-CM 1. Examination of eyes and vision Z01.00 2. Presbyopia H52.4 Refractive State, Determination Of - Bilateral 3. Regular astigmatism of both eyes H52.223 4. 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 History of strabismus surgery Z98.890 6. Allergic conjunctivitis of both eyes H10.13 7. Age-related nuclear cataract of both eyes H25.13 Plan: Plan: 1-3. Updated glasses prescription provided to patient. 4. Discussed with patient, no treatment indicated at this time, monitor. 5. Longstanding, asymptomatic of double vision. monitor. 6. Start pataday or lastacaft, PFAT prn. Warm comrpesses discussed. AVS printed and provided to patient. 7. Not visually significant, monitor. Return to clinic in one year or sooner as needed. documented in this encounter Plan of Treatment Not on file documented as of this encounter Visit Diagnoses Diagnosis Examination of eyes and vision- Primary Presbyopia Regular astigmatism of both eyes Regular astigmatism Endothelial corneal dystrophy of both eyes History of strabismus surgery Allergic conjunctivitis of both eyes Other chronic allergic conjunctivitis Age-related nuclear cataract of both eyes Senile nuclear sclerosis documented in this encounter Care Teams Newsroom Intern Relationship Specialty Start Date End Date Evelyn Cruz MD [address] [place] [address] PCP - General 06/01/1997 09/19/23 documented as of this encounter
--- OUTSIDE RECORDS SUMMARY | 2023-10-11 11:32 | XMS_ITS | Encounter Summary ---
Author Name Unknown Organization [facility] Address [address], [place] [address] Care Team Providers Care Software Engineering Manager Name Role Phone Nathen Rose MD Primary Care Provider [phone] Reason for Referral * Procedure/Equipment (Routine) - Incomplete Specialty Diagnoses / Procedures Referred By Osmel kaiser Referred To Contact Procedures MM Mammogram Screening Bilat W 3D Rios W Nathen Washington MD [address] [place] [address] Referral ID Status Reason Start Date Expiration Date V isits Requested Visits Authorized [id number] Incomplete 09/20/2023 12/19/2024 1 1 Reason for Visit * Procedure/Equipment (Routine) - Incomplete Specialty Diagnoses / Procedures Referred By Osmel kaiser Referred To Contact Procedures MM Mammogram Screening Bilat W 3D Rios W Nathen Washington MD [address] [place] [address] Referral ID Status Reason Start Date Expiration Date V isits Requested Visits Authorized [id number] Incomplete 09/20/2023 12/19/2024 1 1 Encounter Details Date Type Department Care Team ([facility] st Contact Info) Description 09/20/2023 7:40 AM CDT Ancillary Procedure [facility] [address] [place] [address] Social History Tobacco Use Types Packs/Day Years Used Date Smoking Tobacco: Never Smokeless Tobacco: Never PHQ-2 Answer Date Recorded PHQ-2 Score 0 04/28/2021 Sex and Gender Information Value Date Recorded Sex Assigned at Not on file Gender Identity Not on file Sexual Orientation Not on file documented as of this encounter Plan of Treatment Not on file documented as of this encounter Procedures Procedure Name Priority Date/Time Associated Diagnosis Comments MM MAMMOGRAM SCREENING BILAT W 3D RIOS W CAD Routine 09/20/2023 7:41 AM CDT documented in this encounter Results * MM Mammogram Screening Bilat W 3D Rios W CAD (09/20/2023 7:41 AM CDT) Anatomical Region Laterality Modality Breast Bilateral Mammography Impressions 09/20/2023 7:59 AM CDT : ACR BI-RADS Category 1: Negative RECOMMENDATION: Follow Up Imaging in 12 months - Bilateral The results and recommendations of this examination will be communicated to the patient. Narrative 09/20/2023 7:59 AM CDT MM MAMMOGRAM SCREENING BILAT W 3D RIOS W CAD performed on 09/20/23 Compared to: 04/01/2022 MM Mammogram Screening Bilat W 3D Rios W CAD, 03/30/2021 MM Mammogram Screening Bilat W CAD, and 03/24/2020 MM Mammogram Screening Bilat W CAD ?? FINDINGS: Bilateral screening mammogram was performed with the assistance of Computer-Aided Detection and breast tomosynthesis. The breasts are heterogeneously dense, which may obscure small masses. There is no radiographic evidence of malignancy. ?? Nathen Rose MD [facility] documented in this encounter Visit Diagnoses Not on filedocumented in this encounter Care Teams Software Engineering Manager Relationship Specialty Start Date End Date Nathen Rose MD [address] [place] [address] PCP - General Family Practice 09/20/23 documented as of this encounter
--- OUTSIDE RECORDS SUMMARY | 2023-10-11 11:32 | XMS_ITS | Clinical Summary ---
Author Name Unknown Organization [facility] Address [address], [place] [address] Care Team Providers Care Steam Roller Operator Name Role Phone Nathen Rose MD Primary Care Provider [phone] Source Comments You are receiving this document as you are listed as the primary care provider,follow-up provider, or the patient has been referred to you for consultation.This is in compliance with the Medicare and[facility] EHR Incentive Program,which states Providers who transition their patient to another setting of careor provider of care or refers their patient to another provider of care shouldprovide summary care record for each transition of care or referral. [facility] Allergies No known active allergies Medications Medication Sig Dispensed Refills Start Date End Date Status PANTOPRAZOLE SODIUM OR Take 40 mg by mouth daily. 01/30/2020 Active naproxen sodium (ANAPROX) 220 MG tablet Take 220 mg by mouth as needed. Active Active Problems Problem Noted Date Diagnosed Date Acquired hallux valgus, left 01/01/2021 Overview: Added automatically from request for surgery [id number] Diffuse cystic mastopathy 11/16/2002 Overview: Fibrocystic Breast Encounters Date Type Department Care Team Description 09/20/2023 7:40 AM CDT Ancillary Procedure [facility] [address] [place] [address] 09/13/2023 10:00 AM CDT Office Visit [facility] [address] [place] [address] Rachel Castellano, OD Examination of eyes and vision (Primary Dx); Presbyopia; Regular astigmatism of both eyes; Endothelial corneal dystrophy of both eyes; History of strabismus surgery; Allergic conjunctivitis of both eyes; Age-related nuclear cataract of both eyes from Last 3 Months Immunizations Name Administration Dates Next Due Flu Vac Preserv Free (3+yrs) 04/25/2007 HepB Adult (Engerix-B, 20+ y rs, 3 dose series) 08/08/1996,08/08/1996,03/13/1996,1995,01/18/1996,01/18/1996 Influenza IIV4 (Quadrivalent ) 0.5mL (35937) 04/28/2021,03/19/2014 Influenza Vaccine (3+years) ([facility]) 04/10/2008 Influenza, Unspecified Formulation 04/10/2003, Td 11/19/2003, 3,05/26/1993,1983 Family History Medical History Relation Name Comments Cataract Father Glaucoma Father Macular Degeneration Father injecti ons Cataract Mother Glaucoma Mother Macular Degeneration Mother injecti ons Amblyopia/Strabismus Brother 1 Retinal Detachment Brother 1 Amblyopia/Strabismus Brother 2 Diabetes Brother 2 Amblyopia/Strabismus Brother 3 Amblyopia/Strabismus Brother 4 Cataract Paternal Grandfather Cataract Paternal Grandmother Amblyopia/Strabismus Sister 1 Cataract Sister 1 Amblyopia/Strabismus Sister 2 Cancer, Colon Negative Family History Relation Name Status Comments Father Mother Brother 1 Brother 2 Brother 3 Brother 4 Paternal Grandfather Paternal Grandmother Sister 1 Sister 2 Social History Tobacco Use Types Packs/Day Years Used Date Smoking Tobacco: Never Smokeless Tobacco: Never PHQ-2 Answer Date Recorded PHQ-2 Score 0 04/28/2021 Sex and Gender Information Value Date Recorded Sex Assigned at Not on file Gender Identity Not on file Sexual Orientation Not on file Last Filed Vital Signs Vital Sign Reading Time Taken Comments Blood Pressure 109/57 2021 12:45 PM CDT Pulse 56 2021 12:45 PM CDT Temperature 36.4 ??C (97.5 ??F) 2021 12:23 PM C DT Respiratory Rate 14 2021 12:45 PM CDT Oxygen Saturation 98% 2021 12:45 PM CDT Inhaled Oxygen Concentration - - Weight 77.1 kg (170 lb) 02/03/2021 1:15 PM CDT Height 161.3 cm (5' 3.5) 02/03/2021 1:15 PM CDT Body Mass Index 29.64 02/03/2021 1:15 PM CDT Plan of Treatment Health Maintenance Due Date Last Done Comments Hep C Screening (Preventive Services) 1955 Medicare Annual Wellness Visit 1955 Cholesterol 01/04/2011 01/04/2006, 01/11, 01/28/2002, Additional history exists Colonoscopy 04/28/2018 04/28/2008 Dexa 2022 Pneumococcal 65+ Yrs (1 - PCV) 2022 COVID-19 Vaccine ( - season) 2023 04/22/2021, 09/26/2020, 09/05/2020 Influenza (#1) 2023 04/01/2022, 04/12, 04/27/2020, Additional history exists Mammogram 09/19/2024 09/20/2023, 03/13, 03/30/2021, Additional history exists DTaP/Tdap/Td (3 - Tdap) 05/26/2032 05/26/20, 11/09/2010, 11/19/2003, Additional history exists HepB Completed 08/08/1996, 07/14, 03/13/1996, Additional history exists Zoster/Shingles Completed 06/03/2019, 03/12, 12/19/2012 HepA Aged Out No longer eligi ble based on patient's age to complete this topic Hib Aged Out No longer eligi ble based on patient's age to complete this topic IPV (Polio) Aged Out No longer eligi ble based on patient's age to complete this topic MCV4 Aged Out No longer eligi ble based on patient's age to complete this topic Medical Devices Implanted Type Area Commercial Loan Officer Device Identifier Shelf Expiration Date Model / Serial / Lot Scr [employer] 3.0x22 5-Thrd - [id number] Implanted:Qty: 1 on 2021 by Jason Motta DPM at [facility] DEVICE Left: FOOT [employer] 2021 [id number] / / Procedures Procedure Name Priority Date/Time Associated Diagnosis Comments MM MAMMOGRAM SCREENING BILAT W 3D RIOS W CAD Routine 09/20/2023 7:41 AM CDT LIPID PANEL & DIRECT LDL (IF NEEDED) Routine 01/04/2006 8:50 AM CDT from Last 3 Months or Most Recently Relevant to Health Maintenance Results * MM Mammogram Screening Bilat W [...] malignancy. ?? Nathen Rose MD [facility] * (ABNORMAL) Lipid Panel and Direct LDL(If Needed) (01/04/2006 8:50 AM CDT) Cholesterol/HDL Ratio Screen 2.9 No normal range HP CONVERSION Cholesterol 184 <200 mg/dL HP CONVERSION HDL Cholesterol 64(H) 40 - 60 mg/dL HP CONVERSION Triglycerides 44 0 - 149 mg/dL HP CONVERSION LDL Calculated 111 0 - 130 mg/dL HP CONVERSION Comment: 01/04/2006 8:50 AM CDT Roxana Mitchell APRN, EMPLOYEE WELFARE MANAGER LAB_1 HP CONVERSION from Last 3 Months or Most Recently Relevant to Health Maintenance Care Teams Steam Roller Operator Relationship Specialty Start Date End Date Nathen Rose MD [address] [place] [address] PCP - General Family Practice 09/20/23
--- OUTSIDE RECORDS SUMMARY | 2023-10-11 11:32 | XMS_ITS | Encounter Summary ---
Author Name Unknown Organization [facility] Address [address], [place] [address] Care Team Providers Care Record Filing Clerk Name Role Phone Nathen Rose MD Primary Care Provider [phone] Encounter Details Date Type Department Care Team (Latest Contact Info) Description 09/12/1995 Orders Only Philippe Ruiz Social History Tobacco Use Types Packs/Day Years Used Date Smoking Tobacco: Never Assessed Sex and Gender Information Value Date Recorded Sex Assigned at Not on file Gender Identity Not on file Sexual Orientation Not on file documented as of this encounter Plan of Treatment Not on file documented as of this encounter Visit Diagnoses Not on filedocumented in this encounter Care Teams Record Filing Clerk Relationship Specialty Start Date End Date Nathen Rose MD [address] [place] [address] PCP - General Family Practice 09/20/23 documented as of this encounter
--- OUTSIDE RECORDS SUMMARY | 2023-10-11 11:32 | XMS_ITS | Encounter Summary ---
Author Name Unknown Organization [facility] Address [address], [place] [address] Care Team Providers Care Senior Sales Associate Name Role Phone Nathen Rose MD Primary Care Provider [phone] Encounter Details Date Type Department Care Team (Latest Contact Info) Description 05/29/1995 Orders Only Philippe Ruiz Social History Tobacco [...] on filedocumented in this encounter Care Teams Senior Sales Associate Relationship Specialty Start Date End Date Nathen Rose MD [address] [place] [address] PCP - General Family Practice 09/20/23 documented as of this encounter
--- OUTSIDE RECORDS SUMMARY | 2023-10-11 11:32 | XMS_ITS | Encounter Summary ---
Author Name Unknown Organization [facility] Address [address], [place] [address] Care Team Providers Care In Home Nanny Name Role Phone Nathen Rose MD Primary Care Provider [phone] Encounter Details Date Type Department Care Team (Late st Contact Info) Description 06/13/1996 Orders Only [facility] Thad Pedersen [facility] [address], [place] [address] Social History Tobacco Use Types Packs/Day Years Used Date Smoking Tobacco: Never Assessed Sex and Gender Information Value Date Recorded Sex Assigned at Not on file Gender Identity Not on file Sexual Orientation Not on file documented as of this encounter Plan of Treatment Not on file documented as of this encounter Visit Diagnoses Not on filedocumented in this encounter Care Teams In Home Nanny Relationship Specialty Start Date End Date Nathen Rose MD [address] [place] [address] PCP - General Family Practice 09/20/23 documented as of this encounter
--- OUTSIDE RECORDS SUMMARY | 2023-10-11 11:32 | XMS_ITS | Encounter Summary ---
Author Name Unknown Organization [facility] Address [address] [address] Care Team Providers Care Commercial Real Estate Manager Name Role Phone Nathen Rose MD Primary Care Provider [phone] Encounter Details Date Type Department Care Team (Latest Contact Info) Description 06/11/1995 Orders Only Philippe Ruiz Social History Tobacco [...] on filedocumented in this encounter Care Teams Commercial Real Estate Manager Relationship Specialty Start Date End Date Nathen Rose MD [address] [place] [address] PCP - General Family Practice 09/20/23 documented as of this encounter
--- OUTSIDE RECORDS SUMMARY | 2023-10-11 11:32 | XMS_ITS | Encounter Summary ---
Author Name Unknown Organization [facility] Address [address] [address] Care Team Providers Care Ton Cylinder Inspector Name Role Phone Nathen Rose MD Primary Care Provider [phone] Encounter Details Date Type Department Care Team (Latest Contact Info) Description 05/22/1997 Orders Only Evelyn Grider Social History Tobacco Use Types Packs/Day Years Used Date Smoking Tobacco: Never Assessed Sex and Gender Information Value Date Recorded Sex Assigned at Not on file Gender Identity Not on file Sexual Orientation Not on file documented as of this encounter Plan of Treatment Not on file documented as of this encounter Visit Diagnoses Not on filedocumented in this encounter Care Teams Ton Cylinder Inspector Relationship Specialty Start Date End Date Nathen Rose MD [address] [place] [address] PCP - General Family Practice 09/20/23 documented as of this encounter
--- OUTSIDE RECORDS SUMMARY | 2023-10-11 11:32 | XMS_ITS | Encounter Summary ---
Author Name Unknown Organization [facility] Address [address] [address] Care Team Providers Care Relay Dispatcher Name Role Phone Nathen Rose MD Primary Care Provider [phone] Encounter Details Date Type Department Care Team (Latest Contact Info) Description 12/23/1996 Orders Only Evelyn Grider Social History Tobacco [...] on filedocumented in this encounter Care Teams Relay Dispatcher Relationship Specialty Start Date End Date Nathen Rose MD [address] [place] [address] PCP - General Family Practice 09/20/23 documented as of this encounter
--- OUTSIDE RECORDS SUMMARY | 2023-10-11 11:32 | XMS_ITS | Clinical Summary ---
Author Name Unknown Organization [facility] Address [address] [place] [address] Care Team Providers Care Cotton Agent Name Role Phone Conn Aleja Patino Primary Care Provider [phone] Allergies No known active allergies Medications Medication [...] 03/26/2019 6:57 AM CDT Plan of Treatment Health Maintenance Due Date Last Done Comments ADVANCE CARE PLANNING 1957 ANNUAL REVIEW OF HM ORDERS 1957 CT COLONOGRAPHY 1957 DEXA 1957 FIT 1957 FLEX SIG 1957 sDNA (Cologuard) 1957 COLONOSCOPY 1967 COLORECTAL CANCER SCREENING 1967 HEPATITIS C SCREENING 1975 LIPID 1997 RSV VACCINE ( & 60+) (1 - 1-dose 60+ series) 2017 FALL RISK ASSESSMENT 2022 MEDICARE ANNUAL WELLNESS VISIT 2022 01/18/1996, 05/26/1993 COVID-19 Vaccine ( season) 2023 04/06/2022, 04/22/2021, 09/26/2020, Additional history exists PHQ-2 (once per calendar year) 2023 MAMMO SCREENING 04/01/2024 04/01/2022, 01/01/2019 GLUCOSE 09/30/2025 09/30/2022 DTAP/TDAP/TD IMMUNIZATION (3 - Td or Tdap) 05/26/2032 05/26/2022, 11/09/2010, 11/19/2003, Additional history exists ZOSTER IMMUNIZATION Completed 06/03/2019, 03/26/2019, 12/19/2012 Pneumococcal Vaccine: 65+ Years Completed 05/26/2022 INFLUENZA VACCINE Completed 04/01/2023, , 04/28/2021, Additional history exists HPV IMMUNIZATION Aged Out No longer e ligible based on patient's age to complete this topic IPV IMMUNIZATION Aged Out No longer e ligible based on patient's age to complete this topic MENINGITIS IMMUNIZATION Aged Out No l onger eligible based on patient's age to complete this topic RSV MONOCLONAL ANTIBODY Aged Out No l onger eligible based on patient's age to complete this topic Procedures Procedure Name Priority Date/Time Associated Diagnosis Comments BASIC METABOLIC PANEL STAT 09/30/2022 5:47 PM CDT from Last 3 Months or Most Recently Relevant to Health Maintenance Results * Basic metabolic panel (09/30/2022 5:47 PM CDT) Sodium 137 136 - 145 mmol/L 09/30/2022 6:22 PM CDT [facility] Potassium 4.1 3.4 - 5.3 mmol/L 09/30/2022 6:22 PM CDT [facility] Chloride 100 98 - 107 mmol/L 09/30/2022 6:22 PM CDT [facility] Carbon Dioxide (CO2) 26 22 - 29 mmol/L 09/30/2022 6:22 PM CDT [facility] Anion Gap 11 7 - 15 mmol/L 09/30/2022 6:22 PM CDT [facility] Urea Nitrogen 15.4 8.0 - 23.0 mg/dL 09/30/2022 6:22 PM CDT [facility] Creatinine 0.69 0.51 - 0.95 mg/dL 09/30/2022 6:22 PM [facility]T [facility] Calcium 9.8 8.8 - 10.2 mg/dL 09/30/2022 6:22 PM CDT [facility] Glucose 98 70 - 99 mg/dL 09/30/2022 6:22 PM CDT [facility] GFR Estimate >90 >60 mL/min/1.7 3m2 09/30/2022 6:22 PM CDT [facility] Comment:eGFR calculated us2020 CKD-EPI equation. Blood BLOOD SPECIMEN / Unknown Venipuncture / Unknown 09/30/2022 5:47 PM CDT 09/30/2022 5:59 PM CDT Xavi Mariee MD LAB - BLOOD ORD ERABLES [facility] [address] Lab (1st floor, no room number) [place] [address], [facility] [phone] from Last 3 Months or Most Recently Relevant to Health Maintenance Care Teams Cotton Agent Relationship Specialty Start Date End Date Aleja Conn [facility] [address] [place], [place] [id number] PCP - General Nurse Practitioner 04/18/16
== END 2023-09-22 08:10 | disposition home or self-care (01) ==
LOC: NFLDREF 10-11 11:29
PROVIDERS: PCP Family Medicine; Referring Provider Family Medicine; Visit Provider Family Medicine
DX: E78.00 Pure hypercholesterolemia, unspecified (principal); Z13.1 Encounter for screening for diabetes mellitus
CPT/HCPCS: 80053; 80061

== ENCOUNTER 2023-11-20 08:15 | Outpatient (RCR) | payer MEDICARE, SELFPAY ==
--- NOTE | 2023-10-12 13:24 | PT.OPE ---
PT [facility] PT [facility] Outpatient Eval Start: 10/11/23 14:59 Freq: Status: Active Protocol: Document 10/12/23 13:22 CJT (Rec: 10/12/23 13:23 MPT [id number]) E-signed By Juan Byrne PT Physical Therapy Outpatient Evaluation Insurance Information Recert Due Date 01/10/24 Insurance Name Medicare B,Blue Cross/Blue Shield Medical Diagnosis M54.9 - Dorsalgia R20.0 - Anesthesia of skin Treating Diagnosis M54.5 - low back pain M54.16 - lumbar radiculopathy M25.571 - R foot pain Referring Nathen Glasgow MD Subjective Subjective Pt presents with complaints of low back pain and associated right-sided foot numbness. Pt reports she has always had very flat feet. Has worn custom orthotics for about 25 years now. Experiences R foot numbness with standing and walking, also has shooting pain into the R foot. Has been to 3 different podiatrists and has not had any success with their treatment options. Was offered an FERNANDEZ at one point but chose not to pursue that at the time. Has been experiencing more R thigh numbness the past few months. Attends chiro every 2 months or so, also has full-body massages every 6-8 weeks as well. Pt describes her back pain as achy with occasional sharper pains in R low back. Unsure if movements affect her pain much. Pain Comments -10/19 Date of Last Physician Visit 10/11/23 Current Work Status Retired Occupation Former security inspector Preferred Name Maty Precautions Therapy Limitations/Systems Review Not Limited Objective Other/Pertinent Objective Lumbar ROM Extension - no limtations Flexion - can place palms on floor R/L Side Bend - no limitations R/L Rotation - no limitations R Hip ROM Flexion - 120 IR/ER - 44/24 Extension - 0 L Hip ROM Flexion - 120 IR/ER - 36/34 Extension - 0 R knee ROM - 0-0-125 L knee ROM - 0-0-125 R ankle PF/DF(kf)/DF(ke) - 55/ 10/9 L ankle PF/DF(kf)/DF(ke) - 55/ 10/ Upper Abdominals - 2+/5 MMT Lower Abdominals - 2+/5 MMT R Hip Strength Flexion - 3/5 MMT Abduction - 3+/5 MMT Adduction - 4+/5 MMT IR - 5/5 MMT ER - 5/5 MMT Extension - 3+/5 MMT L Hip Strength Flexion - 3/5 MMT Abduction - 4-/5 MMT Adduction - 4+/5 MMT IR - 5/5 MMT ER - 5/5 MMT Extension - 3+/5 MMT R knee Extension - 5/5 MMT R Knee Flexion - 5/5 MMT L knee Extension - 5/5 MMT L knee Flexion - 4/5 MMT Ankle MM - 5/5 MMT for all motions B Palpation: pt reports pain/ tenderness with palpation to B glute min, glute med, piriformis, and R gastroc ( medial>lateral) Gait: no abnormalities detected LLD: 86.0/87.5cm Pelvis: R anterior Assessment Assessment/Impression Maty is a very pleasant 68 year old female who presents to our clinic for evaluation and treatment of low back pain with R-sided radiculopathy. Her primary complaint is R foot numbness with standing and walking. Her numbness on the lateral plantar surface of her R foot. She has tried many different types of shoes and orthotics which have all resulted in minimal and non- lasting relief. Pt presents with significant deficits in her B hips as well as significant muscle tissue tension in her anterior hip in thigh. Her core is also quite weak. While I do feel that she will benefit greatly from strengthening her hips and core, I do not think that this will help her foot numbness. Her foot numbness seems to be due to compression of her lateral plantar nerve, which I feel may be due to her shoes or orthotics. She does understand that her orthotics should not be pushing too much into the lack of arch on her feet. I did ask her to try wearing sandals or flats for a few morse or to wear nothing at all on her feet to see how she responds, as this is not something that she has tried due to fear of increased pain and numbness. She may discontinue and return to her normal shoes if this does happen. While I am not sure what the exact cause is of Maty's foot numbness, it does not seem to be coming from her spine based on today' s testing. I did discuss with her that finding the exact cause of her problem will likely take some time and all questions were answered to the pts satisfaction. Pt also demos a slight leg length difference with R LE shorter than L. She may benefit from use of a small heel lift. Skilled PT services are medically necessary to address deficits and return patient to highest level of function. Recommend physical therapy sessions 2/week for 8 weeks. Pt agrees with this plan. Printout of HEP was given for I completion and pt gives verbal understanding of each exercise. Primary Functional Limitations Walking, standing for extended periods Plan of Care Rehabilitation Potential Good Physical Therapy Goals STG - To be completed in 2-3 weeks: 1. Pt will demo at least 4+/5 MMT for all LE motions bilaterally to provide greater support to pelvis and lumbar spine with standing and walking. 2. Pt will report reduction in severity of numbness in R foot by factor of 2 as indication of reduced strain on lateral plantar nerve. LTG - To be completed in 8 weeks: 1. Pt to be I with HEP so that she may I manage progression of symptoms. 2. Pt will report ability to stand for at least 30 minutes without onset of R foot numbness. 3. Pt will demo at least 4/5 MMT for both upper and lower abdominals to provide adequate core stability to fucntional movements including transfers and walking. Treatment Plan/Direct Interventions Gait Training,Heat,Joint Mobilization,Manual Therapy, Neuromuscular Re-ed,Self-Care/ Home Management,Therapeutic Activities,Therapeutic Exercises,Traction (Mechanical ),Ultrasound Frequency/Duration 2/week for 8 weeks Patient Will Be Discharged From Therapy Completion of LTG(s),Skills Plateau,Independent w/HEP, Independently Progressing Evaluation Billing Untimed Code Treatment Minutes 55 PT Eval No Charge No Complexity Low Certification Information Initial Certification Date 10/12/23 Ending Certification Date 01/10/24 Provider Signature Shows Agreement With POC & Medical Necessity Physician Signature & Date Requested Please Sign/Date Here Physician Comment/Change : Physician NPI Number #
== END 2024-01-25 13:58 | disposition home or self-care (01) ==
PROVIDERS: PCP Family Medicine; Visit Provider Family Medicine
DX: M54.9 Dorsalgia, unspecified (principal); R20.0 Anesthesia of skin; M79.671 Pain in right foot; M25.571 Pain in right ankle and joints of right foot; M54.16 Radiculopathy, lumbar region; Z51.89 Encounter for other specified aftercare
CPT/HCPCS: 97110; 97140; 97161

== ENCOUNTER 2023-12-05 07:04 | Outpatient (CLI) | payer MEDICARE, SELFPAY ==
--- OUTSIDE RECORDS SUMMARY | 2023-12-05 07:07 | XMS_ITS | Encounter Summary ---
Author Organization [facility] Address [address] [place] [address] Care Team Providers Care Interventionist Name Role Phone Nathen Rose MD Primary Care Provider [phone] Encounter Details Date Type Department Care Team (Latest Contact Info) Description 06/06/1997 [place] [address] [place] [address] Social History Tobacco Use Types Packs/Day Years Used Date Smoking Tobacco: Never Assessed Sex and Gender Information Value Date Recorded Sex Assigned at Not on file Gender Identity Not on file Sexual Orientation Not on file documented as of this encounter Plan of Treatment Not on file documented as of this encounter Visit Diagnoses Not on filedocumented in this encounter Care Teams Interventionist Relationship Specialty Start Date End Date Nathen Rose MD [address] [place] [address] PCP - General Family Practice 09/20/23 documented as of this encounter
--- OUTSIDE RECORDS SUMMARY | 2023-12-05 07:07 | XMS_ITS | Encounter Summary ---
Author Organization [facility] Address [address] [address] Care Team Providers Care Musical String Maker Name Role Phone Nathen Rose MD Primary Care Provider [phone] Encounter Details Date Type Department Care Team [...] on filedocumented in this encounter Care Teams Musical String Maker Relationship Specialty Start Date End Date Nathen Rose MD [address] [place] [address] PCP - General Family Practice 09/20/23 documented as of this encounter
--- OUTSIDE RECORDS SUMMARY | 2023-12-05 07:07 | XMS_ITS | Encounter Summary ---
Author Organization [facility] Address [address], [place] [address] Care Team Providers Care Fisher Lobster Name Role Phone Nathen Rose MD Primary Care Provider [phone] Encounter Details Date Type Department Care Team (Late st Contact Info) Description 06/13/1996 Orders Only [facility] Thad Pedersen [facility] [address], [place] [address] Social History Tobacco Use Types Packs/Day Years Used Date Smoking Tobacco: Never Assessed Sex and Gender Information Value Date Recorded Sex Assigned at Not on file Gender Identity Not on file Sexual Orientation Not on file documented as of this encounter Plan of Treatment Not on file documented as of this encounter Visit Diagnoses Not on filedocumented in this encounter Care Teams Fisher Lobster Relationship Specialty Start Date End Date Nathen Rose MD [address] [place] [address] PCP - General Family Practice 09/20/23 documented as of this encounter
--- OUTSIDE RECORDS SUMMARY | 2023-12-05 07:07 | XMS_ITS | Encounter Summary ---
Author Organization [facility] Address [address], [place] [address] Care Team Providers Care Inspector And Clerk Name Role Phone Nathen Rose MD Primary Care Provider [phone] Encounter Details Date Type Department Care Team [...] on filedocumented in this encounter Care Teams Inspector And Clerk Relationship Specialty Start Date End Date Nathen Rose MD [address] [place] [address] PCP - General Family Practice 09/20/23 documented as of this encounter
--- OUTSIDE RECORDS SUMMARY | 2023-12-05 07:07 | XMS_ITS | Encounter Summary ---
Author Organization [email or web address] Address [address] [address] Care Team Providers Care Short Order Fry Cook Name Role Phone Evelyn Cruz MD Primary Care Provider [phone] Reason for Visit * Reason Comments Eye Exam Encounter Details Date Type Department Care Team (Late st Contact Info) Description 09/13/2023 10:00 AM CDT Office Visit [facility] [address] [place], [place] [address] Rachel Castellano, OD [address] [place], [place] [address] Examination of eyes and vision (Primary Dx); [...] you can send me a message through [employer] or call [phone]. Call [phone] or [phone] (after hours) with any new or worsening [...] mix). Gel packs are available at the [facility] or a pharmacy; Angel Masks are available at the [email or web address]. 2. Place over your eyes for 10-15 [...] use. These artificial tears can be purchased [email or web address] at our pharmacy and most [facility] stores. Use them frequently until your symptoms [...] sclerosis documented in this encounter Care Teams Short Order Fry Cook Relationship Specialty Start Date End Date Evelyn Cruz MD [address] [place] [address] PCP - General 06/01/1997 09/19/23 documented as of this encounter
--- OUTSIDE RECORDS SUMMARY | 2023-12-05 07:07 | XMS_ITS | Continuity of Care Document ---
Author Organization [facility] Address [address] [address] [place] [address] Phone Care Team Providers Care Hvac Engineer Name Role Phone Antonia Laguerre CRNA Unavailable Unavailable Allergies, Adverse Reactions, Alerts Substance Reaction Status Criticality adhesive tape ItchingItching Active No Informati on No Known Allergies Resolved No Inform ation Medications Medication Instructions Dosage Effective Dates (start - stop) Status Comments famotidine 40 mg tablet take 1 Tablet by oral route every day at bedtime - Active pantoprazole 40 mg tablet,delayed release take 1 tablet by oral route every morning before breakfast 40 MG - Active pantoprazole 40 mg tablet,delayed release take 1 tablet by oral route every morning before breakfast 40 MG - No Longer Active famotidine 20 mg tablet take 1 tablet by oral route 2 times every day 20 MG - No Longer Active Tylenol Arthritis Pain 650 mg tablet,extended release take 1 Tablet by oral route every day 650 MG - No Longer Active Procedures Procedure Date Ugi Endo; W/bx /mx Level Iv-surg Path Gross/micro 24 Ugi Endo; W/bx /mx Level Iv-surg Path Gross/micro 19 Offic Cons New/estab Mod Advance Directives Directive Yes / No Effective Date File Name No Information Encounters Encounter Description Practice Location Reason(s) For Visit Diagnoses Date Provider Providers Copied on Encounter [facility], [address] [address], [place], [id number], [place] tel:[phone] [facility] No Information 4 Shade EITAN Antonia. [address] [facility] [address], [place], [place], [id number], [place]. tel:[phone] Referring Provider: Dae Chaudhry MD S, [address] [facility] [address], [place], [address] . tel:[phone] [facility], [address] [address], [place], [id number], [place] tel:[phone] [facility] GI Symptoms or Concerns (chief complaint) Ortiz's esophagus without dysplasiaHiata l hernia with GERD and esophagitisBen ign gastric polypEsophagea l obstructionGas tro-esophageal reflux disease with esophagitis, without bleedingBarret t's esophagus without dysplasiaEsoph ageal obstruction 4 Richa Pearl. [address] [facility] [address], [place], [id number], [place]. tel:[phone] Blaine Grubbs MD. tel:[phone] erring Provider: Nathen Rose MD, [address] [place] [address], [address]. tel:[phone] [facility], [address] [address], [place], [address], [place] tel:[phone] [facility] No Information 4 Richa Pearl. [address] [facility] [address], [place], [address], [place]. tel:[phone] [facility], [address] [address], [facility] [place], [address], [place] tel:[phone] [facility] No Information 201 9 Rubén Lopez. [address] [facility] [address], [place], [place], [id number], [place]. tel:[phone] [facility], [address] [address], [place], [id number], [place] tel:[phone] [facility] Dysphagia, unspecifiedOth er diseases of stomach and duodenumDyspha flynn, unspecified Sep- 9 Matthew Cortés. [address] [facility] [address], [place], [place], [address], [place]. tel:[phone] Blaine Grubbs MD. tel:[phone] erring Provider: Referral Self, USE FOR SELF REFERRALS. Offic Cons New/estab Mod [facility], [address] [address], [place], [id number], [place] tel:[phone] [facility] GI Symptoms or Concerns (chief complaint) Dysphagia, unspecified typeBarrett's esophagus without dysplasiaGlobu s sensation Sep- 9 No Information Blaine Grubbs MD. tel:[phone] erring Provider: Blaine Grubbs MD, [address] [place] [address], [address]. tel:[phone] Family History Family Member Type Diagnosis Age At Onset Brother Problem (finding) Alive and well Daughter Problem (finding) Alive and well Mother Problem (finding) Alive and well Brother Problem (finding) alcoholism Sister Problem (finding) Alive and well Father Problem (finding) Colon polyps Father Problem (finding) ulcerative colitis Immunizations Vaccine Date Status Comments influenza, seasonal vaccine, quadrivalent, adjuvanted, 0.5mL dose, preservative free administered Note: [facility] bi-di rectional interface ; Source: Other Registry SARS-COV-2 (COVID-19) vaccin e, mRNA, spike protein, LNP, preservative free, all-sucrose, 30 mcg/0.3 mL dose administered Note: [facility] bi-direct ional interface ; Source: Other Registry Pneumococcal conjugate vacci ne 20-valent (PCV20), polysaccharide [id number] conjugate, adjuvant, preservative free administered Note: [facility] bi-direct ional interface ; Source: Other Registry tetanus toxoid, reduced diphtheria toxoid, and acellular pertussis vaccine, adsorbed administered Note: [facility] b i-directional interface ; Source: Other Registry SARS-COV-2 (COVID-19) vaccin e, mRNA, spike protein, LNP, bivalent, preservative free, 30 mcg/0.3 mL dose, all-sucrose formulation administered Note: [facility] bi-direct ional interface ; Source: Other Registry influenza, high-dose seasona l, quadrivalent, 0.7mL dose, preservative free administered Note: [facility] bi-direct ional interface ; Source: Other Registry SARS-COV-2 (COVID-19) vaccin e, mRNA, spike protein, LNP, preservative free, 30 mcg/0.3mL dose administered Note: [facility] bi-direct ional interface ; Source: Other Registry SARS-COV-2 (COVID-19) vaccin e, mRNA, spike protein, LNP, preservative free, 30 mcg/0.3mL dose administered Note: [facility] bi-direct ional interface ; Source: Other Registry SARS-COV-2 (COVID-19) vaccin e, mRNA, spike protein, LNP, preservative free, 30 mcg/0.3mL dose administered Note: [facility] bi-direct ional interface ; Source: Other Registry Seasonal, quadrivalent, recombinant, injectable influenza vaccine, preservative free administered Note: [facility] bi -directional interface ; Source: Other Registry zoster vaccine recombinant administered N ote: [facility] bi-directional interface ; Source: Other Registry Afluria Qd administered Note: M [facility] bi-directional interface ; Source: Other Registry zoster vaccine recombinant administered N ote: [facility] bi-directional interface ; Source: Other Registry Fluzone Quad 6mo or older administered Note: [facility] bi-direct ional interface ; Source: Other Registry Afluria Qd administered Note: M [facility] bi-directional interface ; Source: Other Registry Fluzone Quad 6mo or older administered Note: [facility] bi-direct ional interface ; Source: Other Registry Afluria Qd administered Note: M [facility] bi-directional interface ; Source: Other Registry Fluzone Quad 6mo or older administered Note: [facility] bi-direct ional interface ; Source: Other Registry Afluria Qd administered Note: M [facility] bi-directional interface ; Source: Other Registry Fluzone Quad 6mo or older administered Note: [facility] bi-direct ional interface ; Source: Other Registry Afluria Qd administered Note: M [facility] bi-directional interface ; Source: Other Registry Fluzone Quad 6mo or older administered Note: [facility] bi-direct ional interface ; Source: Other Registry Influenza, seasonal, injecta ble, preservative free administered Note: [facility] bi-direct ional interface ; Source: Other Registry zoster vaccine, live administered Note: M IIC bi-directional interface ; Source: Other Registry Influenza, seasonal, injecta ble, preservative free administered Note: [facility] bi-direct ional interface ; Source: Other Registry Influenza, seasonal, injecta ble, preservative free administered Note: [facility] bi-direct ional interface ; Source: Other Registry tetanus toxoid, reduced diphtheria toxoid, and acellular pertussis vaccine, adsorbed administered Note: [facility] b i-directional interface ; Source: Other Registry Novel [id number], all formulations administered Note: [facility] bi-direct ional interface ; Source: Other Registry Influenza, seasonal, injecta ble, preservative free administered Note: [facility] bi-direct ional interface ; Source: Other Registry influenza virus vaccine, unspecified formulation administered Note: [facility] bi-di rectional interface ; Source: Other Registry tetanus and diphtheria toxoi ds, adsorbed, preservative free, for adult use (2 Lf of tetanus toxoid and 2 Lf of diphtheria toxoid) administered Note: MII C bi- directional interface ; Source: Other Registry influenza virus vaccine, unspecified formulation administered Note: [facility] bi-di rectional interface ; Source: Other Registry Influenza, seasonal, injectable administe red Note: [facility] bi- directional interface ; Source: Other Registry Engerix-B administered Note: [facility] bi-d irectional interface ; Source: Other Registry Engerix-B administered Note: [facility] bi-d irectional interface ; Source: Other Registry Engerix-B administered Note: [facility] bi-d irectional interface ; Source: Other Registry tetanus and diphtheria toxoi ds, adsorbed, preservative free, for adult use (2 Lf of tetanus toxoid and 2 Lf of diphtheria toxoid) administered Note: MII C bi- directional interface ; Source: Other Registry tetanus and diphtheria toxoi ds, adsorbed, preservative free, for adult use (2 Lf of tetanus toxoid and 2 Lf of diphtheria toxoid) administered Note: MII C bi- directional interface ; Source: Other Registry Payers Payer name Insurance type Covered democrat ID Authoriza tion(s) Blue Cross Medicare Advantage [id number] Social History Type Description Quantity Date Captured Comments Sex Female Smoking Status No Information Chief Complaint And Reason For Visit No Information Reason For Referral Reason For Referral No Information Plan Of Treatment Date Type Action Status Referral Ordered: EGD With Dilation Appointment date/timeframe: 03/11/2019 ordered Referral Ordered: Esoph Motility Study; Appointment date/timeframe: -today ordered History Of Present Illness Encounter Date Complaint History Of Prese nt Illness GI Symptoms or Concerns GI Symptoms or Concerns Maty knight is a 64-year-old female who was referred to clinic for consultation by Dr. Cassie Gant for evaluation of dysphagia. The patient has a past medical history significant for short segment Ortiz's esophagus. The patient states that she would occasionally have some trouble swallowing, which was her manifestation of acid reflux. This summer she developed tinnitus on December 13 and she has been dealing with that constantly since that time. In December, she also had an acute episode of dysphagia when she was eating scrambled eggs while on vacation in [place]. She states that she was unable to tolerate her spit and would have spitting for about 2 hours before she could bring the scrambled eggs back up. Since that time, she has been very scared that the symptoms will return. She denies any heartburn, chest pain, dysphagia, or odynophagia. Her appetite has been good and her weight has been stable. She has been maintained on famotidine 20 mg twice daily for several years for Functional Status Date Functional Assessmen t No Information Medications Administered Medication Instructions Dosage Effective Dates (start - stop) Status Comments pantoprazole 40 mg tablet,delayed release take 1 tablet by oral route every morning before breakfast 40 MG - No Longer Active Instructions Date Instruction Additional Infor fernanda Gastroesophageal Reflux Disease Related to Ortiz's esophagus without dysplasia Hiatal Hernia Related to Morenci tt's esophagus without dysplasia Barretts Related to Morenci tt's esophagus without dysplasia Hiatal Hernia Related to Dysph agia, unspecified Assessments Type Assessment Date No Information Patient Care Teams Name Effective Dates (start - stop) Status Members No Information
--- OUTSIDE RECORDS SUMMARY | 2023-12-05 07:07 | XMS_ITS | Encounter Summary ---
Author Organization [facility] Address [address], [place] [address] Care Team Providers Care Brand Marketing Specialist Name Role Phone Nathen Rose MD Primary Care Provider [phone] Encounter Details Date Type Department Care Team [...] on filedocumented in this encounter Care Teams Brand Marketing Specialist Relationship Specialty Start Date End Date Nathen Rose MD [address] [place] [address] PCP - General Family Practice 09/20/23 documented as of this encounter
--- OUTSIDE RECORDS SUMMARY | 2023-12-05 07:07 | XMS_ITS | Encounter Summary ---
Author Organization [facility] Address [address] [address] Care Team Providers Care Foundry Hand Name Role Phone Nathen Rose MD Primary Care Provider [phone] Encounter Details Date Type Department Care Team (Latest Contact Info) Description 07/01/1996 Orders Only Gulshan Foote MD [address] [place] [address] Social History Tobacco Use Types Packs/Day Years Used Date Smoking Tobacco: Never Assessed Sex and Gender Information Value Date Recorded Sex Assigned at Not on file Gender Identity Not on file Sexual Orientation Not on file documented as of this encounter Plan of Treatment Not on file documented as of this encounter Visit Diagnoses Not on filedocumented in this encounter Care Teams Foundry Hand Relationship Specialty Start Date End Date Nathen Rose MD [address] [place] [address] PCP - General Family Practice 09/20/23 documented as of this encounter
--- OUTSIDE RECORDS SUMMARY | 2023-12-05 07:07 | XMS_ITS | Encounter Summary ---
Author Organization [facility] [employer] Address [address], [place] [address] Care Team Providers Care Press Operator Assistant Name Role Phone Nathen Rose MD Primary Care Provider [phone] Encounter Details Date Type Department Care Team [...] on filedocumented in this encounter Care Teams Press Operator Assistant Relationship Specialty Start Date End Date Nathen Rose MD [address] [place] [address] PCP - General Family Practice 09/20/23 documented as of this encounter
--- OUTSIDE RECORDS SUMMARY | 2023-12-05 07:07 | XMS_ITS | Encounter Summary ---
Author Organization [facility] Address [address], [place] [address] Care Team Providers Care Vice President Of Brand Management Name Role Phone Nathen Rose MD Primary Care Provider [phone] Encounter Details Date Type Department Care Team [...] on filedocumented in this encounter Care Teams Vice President Of Brand Management Relationship Specialty Start Date End Date Nathen Rose MD [address] [place] [address] PCP - General Family Practice 09/20/23 documented as of this encounter
--- OUTSIDE RECORDS SUMMARY | 2023-12-05 07:07 | XMS_ITS | Encounter Summary ---
Author Organization [facility] Address [address] [place] [address] Care Team Providers Care Power Line Installer And Repairer Name Role Phone Nathen Rose MD Primary Care Provider [phone] Reason for Referral * Procedure/Equipment (Routine) - Incomplete Specialty Diagnoses / Procedures Referred By Osmel kaiser Referred To Contact Procedures MM Mammogram Screening Bilat W 3D Rios W Nathen Washington MD [address] [place] [address] Referral ID Status Reason Start Date Expiration Date V isits Requested Visits Authorized [id number] Incomplete 09/20/2023 12/19/2024 1 1 Reason for Visit * Procedure/Equipment (Routine) - Incomplete Specialty Diagnoses / Procedures Referred By Osmel kaiser Referred To Contact Procedures MM Mammogram Screening Bilat W 3D Rios W Nathen Washington MD [address] [place] [address] Referral ID Status Reason Start Date Expiration Date V isits Requested Visits Authorized [id number] Incomplete 09/20/2023 12/19/2024 1 1 Encounter Details Date Type Department Care Team (Late st Contact Info) Description 09/20/2023 7:40 AM CDT Ancillary Procedure [facility] at [facility] [address] [address] Social History Tobacco Use Types Packs/Day Years [...] on filedocumented in this encounter Care Teams Power Line Installer And Repairer Relationship Specialty Start Date End Date Nathen Rose MD [address] [place] [address] PCP - General Family Practice 09/20/23 documented as of this encounter
--- OUTSIDE RECORDS SUMMARY | 2023-12-05 07:07 | XMS_ITS | Clinical Summary ---
Author Organization [facility] Address [address], [place] [address] Care Team Providers Care Feeder Catcher Name Role Phone Nathen Rose MD Primary Care Provider [phone] Source Comments You are receiving this document as you are listed as the primary care provider,follow-up provider, or the patient has been referred to you for consultation.This is in compliance with the Medicare and[facility] EHR Incentive Program,which states Providers who transition their patient to another setting of careor provider of care or refers their patient to another provider of care shouldprovide summary care record for each transition of care or referral. [facility] Allergies No known active allergies Medications Medication Sig Dispensed Refills Start Date End Date Status PANTOPRAZOLE SODIUM OR Take 40 mg by mouth daily. 01/30/2020 Active naproxen sodium (ANAPROX) 220 MG tablet Take 220 mg by mouth as needed. 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 Overview: Fibrocystic Breast Encounters Date Type Department Care Team Description 09/20/2023 7:40 AM CDT Ancillary Procedure [facility] at [facility] [place] [address] [address] 09/13/2023 10:00 AM CDT Office Visit [facility] [address] [place] [address] Rachel Castellano, OD Examination of eyes and [...] series) 08/08/1996,08/08/1996,03/13/1996,1995,01/18/1996,01/18/1996 Influenza IIV4 (Quadrivalent ) 0.5mL ([id number]) 04/28/2021,03/19/2014 Influenza Vaccine (3+years) ([facility]) 04/10/2008 Influenza, Unspecified Formulation 04/10/2003, [...] - season) 2023 04/22/2021, 09/26/2020, 09/05/2020 Influenza (Season Ended) 2024 022, 04/28/2021, 04/27/2020, Additional history exists Mammogram 09/19/2024 09/20/2023, [...] this topic Medical Devices Implanted Type Area Char Conveyor Tender Device Identifier Shelf Expiration Date Model / Serial / Lot Donavan Barragan 3.0x22 5-Thrd - [id number] Implanted:Qty: 1 on 2021 by Jason Motta DPM at [facility] DEVICE Left: FOOT [facility] 2021 [id number] / / Procedures Procedure Name Priority Date/Time [...] 01/04/2006 8:50 AM CDT Roxana Mitchell APRN, [facility] HP CONVERSION from Last 3 Months or Most Recently Relevant to Health Maintenance Care Teams Feeder Catcher Relationship Specialty Start Date End Date Nathen Rose MD [address] [place] [address] PCP - General Family Practice 09/20/23
--- OUTSIDE RECORDS SUMMARY | 2023-12-05 07:07 | XMS_ITS | Clinical Summary ---
Author Organization [facility] Address [address] [place] [address] Care Team Providers Care Agricultural Technician Name Role Phone Maura Connnda Sukumar Primary Care Provider [phone] Allergies No known active allergies Medications Medication [...] - 0.95 mg/dL 09/30/2022 6:22 PM CDT [facility] Calcium 9.8 8.8 - 10.2 mg/dL [...] LAB - BLOOD ORD ERABLES [facility] [address] Lab (1st floor, no room number) [place] [address], [facility] [phone] from Last 3 Months or Most Recently Relevant to Health Maintenance Care Teams Agricultural Technician Relationship Specialty Start Date End Date Aleja Conn [facility] [address] [place], [place] [address] PCP - General Nurse Practitioner 04/18/16
--- OUTSIDE RECORDS SUMMARY | 2023-12-05 07:07 | XMS_ITS | Referral Summary ---
Author Organization [facility] Address [address] [place] [address] Care Team Providers Care Manager Export Name Role Phone Aleja Conn Sukumar Primary Care Provider [phone] Allergies No known active allergies Medications Medication [...] 6:22 PM CDT LABORATORY Comment:eGFR calculated usin g 2020 CKD-EPI equation. Blood BLOOD SPECIMEN / Unknown Venipuncture / Unknown 09/30/2022 5:47 PM CDT 09/30/2022 5:59 PM CDT Xavi Mariee MD LAB - BLOOD ORD ERABLES LABORATORY [facility] [address] Lab (1st floor, no room number) [place] [address], [facility] [phone] from Last 3 Months or Most Recently Relevant to Health Maintenance Care Teams Manager Export Relationship Specialty Start Date End Date Aleja Conn [facility] [address] [place], [place] [address] PCP - General Nurse Practitioner 04/18/16
--- OUTSIDE RECORDS SUMMARY | 2023-12-05 07:07 | XMS_ITS | Clinical Summary ---
Author Organization [facility] Address [place], [place] [address] Care Team Providers Care Visitor Services Technician Name Role Phone Nathen Rose MD Primary Care Provider [phone] Allergies No known active allergies Medications Medication Sig Dispensed Refills Start Date End Date Status pantoprazole (PROTONIX) 40 mg delayed-release tablet Take 40 mg by mouth once daily. 08/29/2023 Active Active Problems No known active problems Encounters Date Type Department Care Team Description 11/17/2023 8:00 AM CDT Office Visit [facility] [address] [place] [address] Philippe Becerra MD Musculoskeletal Problem (Right foot pain Consult. wanting to know if the foot pain is causing the back pain ) 11/17/2023 Travel 09/27/2023 Transcribe Orders [facility] [address] [place] [address] Nathen Rose MD from Last 3 Months Social History Tobacco Use Types Packs/Day Years Used Date Smoking Tobacco: Never Smokeless Tobacco: Never Tobacco Cessation:Counseling Given: No Alcohol Use Standard Drinks/Week Comments Yes 0 (1 standard drink = 0.6 oz pur e alcohol) Occ Social Connections Answer Date Recorded Frequency of Communication with Friends and Fami ly Not on file 11/17/2023 Sex and Gender Information Value Date Recorded Sex Assigned at Not on file Gender Identity Not on file Sexual Orientation Not on file Obstetrics History Last Filed Vital Signs Vital Sign Reading Time Taken Comments Blood Pressure 154/87 11/17/2023 7:58 AM CDT Pulse 64 11/17/2023 7:58 AM CDT Temperature 36.7 ??C (98 ??F) 11/17/2023 7:58 AM CDT Respiratory Rate - - Oxygen Saturation 100% 11/17/2023 7:58 AM CDT Inhaled Oxygen Concentration - - Weight 79.7 kg (175 lb 9.6 oz) 11/17/2023 7:58 A M CDT Height - - Body Mass Index - - Plan of Treatment Health Maintenance Due Date Last Done Comments Tdap 02/06/1968 Depression screening for age 12+ 1969 BMI (ht and wt on same day) for age 18+ 1975 Hepatitis C screening for ag e 18-79 1975 Tetanus booster 1977 Colonoscopy through age 75 2002 Lipids for age 45-75 2002 Mammogram for age 45-75 2002 Zoster (shingles) series for age 50+ (1 of 2) 2007 DEXA/DXA scan for age 65+ 2022 Medicare Wellness for age 65+ 2022 Pneumococcal series for age 65+ (1 of 1 - PCV) 2022 COVID-19 vaccine series ( season) 2023 04/01/2023, 04/06/2022, 04/22/2021, Additional history exists Influenza for age 65+ 02/11/2024 Care Teams Visitor Services Technician Relationship Specialty Start Date End Date Nathen Rose MD [address] [place] [address] PCP - General Family Practice 09/28/23
--- NOTE | 2023-12-05 07:15 | CRLHL7_ITS ---
For Patients: As a result of the Century Cures Act, medical imaging exams and procedure reports are released immediately into your electronic medical record. You may view this report before your referring provider. If you have questions, please contact your health care provider. INDICATION: Pain. COMPARISON: 25 September 2023 plain film. TECHNIQUE: Axial, coronal and sagittal T1 and STIR sequences ankle and midfoot. FINDINGS: Moderately significant pes planus with medial plantar drift of the talar head. Hindfoot valgus. 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 Small effusions of both the talonavicular and calcaneocuboid joint. No acute fracture. Moderate sized bland appearing effusion of the tibiotalar ankle joint. Subchondral edema at the anterior medial head neck and dome. Moderate degenerate arthrosis changes at the posterior greater than middle subtalar joint. Plantar fascia thickness and signal is normal. Minor tenosynovitis fluid in the posterior tibialis and flexor digitorum greater than flexor hallucis around the medial ankle. Small volume of possibly loculated tenosynovitis fluid in the common peroneal tendon sheath. No tendon tear or subluxation. Mild patchy subchondral edema from degenerative arthrosis in the 3rd through 5th tarsometatarsal joints. IMPRESSION: Prominent pes planus and hindfoot valgus. Associated degenerative changes tibiotalar ankle, subtalar hindfoot and Chopart joint greater than the 3rd through 5th tarsometatarsal joints. Dictated by Philippe Werner MD @ 12/06/2023 10:30:56 AM (Electronically Signed)
== END 2023-12-05 07:05 | disposition home or self-care (01) ==
LOC: MRI 07:05
PROVIDERS: PCP Family Medicine; Visit Provider Family Medicine
DX: M79.671 Pain in right foot (principal); M19.079 Primary osteoarthritis, unspecified ankle and foot; M21.41 Flat foot [pes planus] (acquired), right foot; M21.42 Flat foot [pes planus] (acquired), left foot; G57.91 Unspecified mononeuropathy of right lower limb; R20.0 Anesthesia of skin; M54.9 Dorsalgia, unspecified
CPT/HCPCS: 73718

== ENCOUNTER 2025-03-06 09:34 | Outpatient (CLI) | payer MEDICARE, SELFPAY ==
--- NOTE | 2025-03-06 10:00 | CRLHL7_ITS ---
For Patients: As a result of the Century Cures Act, medical imaging exams and procedure reports are released immediately into your electronic medical record. You may view this report before your referring provider. If you have questions, please contact your health care provider. INDICATION: Chronic sinusitis. TECHNIQUE: Routine CT images through the paranasal sinuses are obtained without contrast. Multiplanar reconstructions. Findings : Frontal: There is minimal mucosal thickening in the inferior frontal recesses the frontal air cells are otherwise clear. Ethmoid: 1-2 mm mucosal thickening in the anterior ethmoid air cells no air-fluid levels. Sphenoid: The sphenoid air cells are clear the sphenoid ethmoidal recesses patent bilaterally. Maxillary: 3 mm or less mucosal thickening at the base the left maxillary antrum. Mild narrowing of the left ostiomeatal unit. There are small bilateral Rafael cells. Nasal fossa: Mild convex right curvature of the nasal septum. Posterior nasal fossa and nasopharynx unremarkable. Middle ear cavities and mastoid air cells grossly clear. IMPRESSION: 1. Mild inflammatory mucosal thickening in the inferior frontal recesses, few anterior ethmoid air cells and at the base of the left maxillary antrum. 2. Slight narrowing of the left ostiomeatal unit. 3. No air-fluid levels. Please note that all CT scans at this facility use dose modulation, iterative reconstruction, and/or weight-based dosing when appropriate to reduce radiation dose to as low as reasonably achievable. Dictated by Marcio Reza MD @ 03/07/2025 9:28:47 AM (Electronically Signed)
== END 2025-03-06 09:35 | disposition home or self-care (01) ==
LOC: CT 09:35
PROVIDERS: PCP Family Medicine; Visit Provider Otolaryngology
DX: J32.9 Chronic sinusitis, unspecified (principal)
CPT/HCPCS: 70486

== ENCOUNTER 2025-05-20 08:47 | Outpatient (CLI) | payer MEDICARE, SELFPAY | END 2025-05-20 08:48 | disposition home or self-care (01) | LOC: NFLDREF 05-26 17:52 | PROVIDERS: PCP Family Medicine; Referring Provider Family Medicine; Visit Provider Family Medicine | DX: E78.00 Pure hypercholesterolemia, unspecified (principal) | CPT/HCPCS: 80053; 80061 ==